=== PATIENT | female | born 1990 | race Caucasian/White ===

== ENCOUNTER 2016-07-10 17:53 | Emergency (ER) | payer BC ==
--- NOTE | ~2016-07-10 | CR63 ---
[facility]. [facility] A Service of [facility] & [facility] RADIOLOGY TEXT RESULTS PATIENT: JOSIE PEÑA LOCATION: SED : 90 UNIT #: [id number] AGE: [address]: Vi Naik APRN SEX: F ORDER DR: [id number] [place] [id number] E MR#: [id number] Acc #: [id number] NAME: JOSIE PEÑA : 1990 SEX: F STUDY DATE/TIME: 07/10/2016 17:57 UNIT: SED ROOM: STUDY DESCRIPTION: CR Chest 2 View Attending Physician: Vi Naik A.P.R.N. Ordering Physician: Vi Naik A.P.R.N. Primary Care Physician: Yony Brooks M.D. MEDICAL IMAGING REPORT This report is preliminary unless electronic signature is present. EXAM PA and lateral chest HISTORY Cough, sore throat and left side pain for 2 weeks. FINDINGS PA and lateral examination of the chest upright shows a good expansion of the parenchyma with a normal distribution of the pulmonary vascularity. There is no indication of congestion, effusion, infiltrate, tumor, or nodular density. The pleural reflections and diaphragmatic contours are normal. The cardiac silhouette and mediastinal anatomy is within normal limits. IMPRESSION Normal chest. Dictated by... Robert Mueller M.D. THIS IS AN ELECTRONICALLY VERIFIED REPORT Robert Mueller M.D. at 07/12/2016 3:28 PM MYRIAM/dhruv TD: 07/11/2016 08:54 JOB #: [id number] MEDICAL IMAGING REPORT
[~2016-07-10 17:53] MED LIST: ALBUTEROL17 GM INH; AUGMENTIN875 MG PO; BACTRIM DS TABL1 TA1 PO; BENTYL20 MG PO; BENZONATATE PO; CLARITIN10 M3; FLONASE 0.05% N16 G1; K-DUR20 ME1 PO; KEFLEX PO; OMEPRAZOLE20 M2 PO; PEPCID PO; PREDNISONE; PRILOSEC; TYLENOL #3 PO; ZITHROMAX PO; ZOFRAN ODT4 MG PO; ZOLOFT50 MG
[2016-07-10 18:38] LABS: BASOPHIL# 0.1 X10e3 (0-0.3); BASOPHIL% 0.8 % (0-2.5); EOSINOPHIL# 0.2 X10e3 (0-0.7); EOSINOPHIL% 1.3 % (0.0-7.0); HEMATOCRIT 40.9 % (35.0-45.0); HEMOGLOBIN 13.5 gm/dL (12.0-16.0); LYMPHOCYTE# 2.8 X10e3 (1.0-3.5); MEAN CELL VOLUME 89.2 FL (83-96); MEAN CORPUSCULAR HEMOGLOBIN 29.4 PG (28-34); MEAN PLATELET VOLUME 7.5 FL (6.5-11.5); MONOCYTE# 0.9 X10e3 (0-1.0); MONOCYTE% 7.1 % (3.0-12.0); NEUTROPHIL# 8.6 X10e3 (1.5-7.1); NEUTROPHIL% 68.8 % (40-75); PLATELET COUNT 273 X10e3 (140-420); RED BLOOD COUNT 4.58 X10e (3.90-5.30); RED CELL DISTRIBUTION WIDTH 13.5 % (11.0-15.5); WHITE BLOOD COUNT 12.5 X10e3 (4.0-10.5)
[2016-07-10 18:46] LABS: DIFF IND NO
[2016-07-10 18:57] LABS: ALBUMIN SERUM 3.9 g/dL (3.5-5.0); ALKALINE PHOSPHATASE 81 U/L (32-92); ALT (SGPT) 24 U/L (10-40); AST (SGOT) 19 U/L (10-42); BILIRUBIN, DIRECT 0.1 mg/dL (0.0-0.2); BILIRUBIN,INDIRECT 0.1 mg/dL (0.0-0.9); BILIRUBIN,TOTAL 0.2 mg/dL (0.2-2.0); BLOOD UREA NITROGEN 14 mg/dL (9-23); CALCIUM SERUM 8.9 mg/dL (8.4-10.2); CARBON DIOXIDE 23 mmol/L (22-31); CHLORIDE 106 mmol/L (100-111); CREATININE SERUM 0.7 mg/dL (0.6-1.4); GLOM FILT RATE Estimated ABOVE60 mL/min (>60); GLUCOSE FASTING 118 mg/dL (70-110); POTASSIUM 3.8 mmol/L (3.5-5.1); SODIUM 137 mmol/L (135-145)
== END 2016-07-10 19:46 | disposition home or self-care (01) ==
LOC: SED 17:53
PROVIDERS: Nurse Practitioner
DX: S29.011A Strain of muscle and tendon of front wall of thorax, initial encounter (principal); J02.9 Acute pharyngitis, unspecified; H66.91 Otitis media, unspecified, right ear; K21.9 Gastro-esophageal reflux disease without esophagitis; X58.XXXA Exposure to other specified factors, initial encounter; Y92.9 Unspecified place or not applicable
CPT/HCPCS: 36415; 71020; 80048; 80076; 85025; 86308; 99283

== ENCOUNTER 2016-07-27 10:26 | Emergency (ER) | payer BC ==
[2016-07-27 10:48] LABS: INFLUENZA A NEG (NEG); INFLUENZA B POS (NEG)
== END 2016-07-27 11:25 | disposition home or self-care (01) ==
LOC: SED 10:26
PROVIDERS: Nurse Practitioner
DX: J10.1 Influenza due to other identified influenza virus with other respiratory manifestations (principal); K21.9 Gastro-esophageal reflux disease without esophagitis; Z87.891 Personal history of nicotine dependence
CPT/HCPCS: 87651; 87804; 99283

== ENCOUNTER 2016-08-09 22:30 | Emergency (ER) | payer BC ==
--- NOTE | ~2016-08-09 | CR72 ---
[facility]. [facility] A Service of [facility] RADIOLOGY TEXT RESULTS PATIENT: JOSIE PEÑA LOCATION: SED : 90 UNIT #: [id number] AGE: [address]: Anmol Quiroz MD SEX: F ORDER DR: [id number] [place] [address] [id number] E MR#: [id number] Acc #: [id number] NAME: JOSIE PEÑA : 1990 SEX: F STUDY DATE/TIME: 08/10/2016 1:09 UNIT: SED ROOM: STUDY DESCRIPTION: CR Chest Single View Portable Attending Physician: Anmol Quiroz M.D. Ordering Physician: Anmol Quiroz M.D. Primary Care Physician: Yony Brooks M.D. MEDICAL IMAGING REPORT This report is preliminary unless electronic signature is present. EXAM Portable chest INDICATION Body aches and cough since July 27, 2016 PROCEDURE Frontal view chest. COMPARISON 07/10/2016 FINDINGS Heart size within normal limits. No dense consolidation. No pleural fluid or pneumothorax. IMPRESSION No active process. Dictated by... Ken Knox M.D. THIS IS AN ELECTRONICALLY VERIFIED REPORT Ken Knox M.D. at 08/10/2016 10:24 PM EED/douglas TD: 08/10/2016 03:46 JOB #: [id number] [facility] A Service of [facility] RADIOLOGY TEXT RESULTS PATIENT: JOSIE PEÑA LOCATION: SED : 90 UNIT #: [id number] AGE: [address]: Anmol Quiroz MD SEX: F ORDER DR: MEDICAL IMAGING REPORT Page 1 of 1
== END 2016-08-10 02:00 | disposition home or self-care (01) ==
LOC: SED 22:30
DX: J20.9 Acute bronchitis, unspecified (principal); J01.00 Acute maxillary sinusitis, unspecified; J01.20 Acute ethmoidal sinusitis, unspecified; K21.9 Gastro-esophageal reflux disease without esophagitis; F17.210 Nicotine dependence, cigarettes, uncomplicated
CPT/HCPCS: 71010; 99283

== ENCOUNTER 2016-09-26 14:52 | Emergency (ER) | payer BC ==
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
[2016-09-26 16:42] LABS: URINE SOURCE CLEAN CATCH
[2016-09-26 16:43] LABS: URINE APPEARANCE CLEAR; URINE BILIRUBIN NEG (NEG); URINE BLOOD TRACE-INTACT (NEG); URINE COLOR YELLOW; URINE GLUCOSE NEG (NORM); URINE KETONE NEG (NEG); URINE LEUKOCYTE ESTERASE 1+ (NEG); URINE NITRATE NEG (NEG); URINE PH 5.5 (5-8); URINE PROTEIN NEG (NEG); URINE SPECIFIC GRAVITY <=1.005 (1.003-1.035); URINE UROBILINOGEN 0.2 MG/DL (NORM)
[2016-09-26 16:48] LABS: MICRO INDICATED? YES
[2016-09-26 16:52] LABS: AMPHETAMINE NEG (NEG); BARBITURATES NEG (NEG); BENZODIAZEPINES NEG (NEG); COCAINE NEG (NEG); MARIJUANA NEG (NEG); OPIATES NEG (NEG); TRICYCLIC ANTIDEPRESSANTS NEG (NEG); U METHADONE NEG (NEG)
[2016-09-26 17:07] LABS: CULTURE INDICATED? NO; URINE BACTERIA NEG (NEG); URINE RBC 0-2 /[HPF] (0-2); URINE WBC 0-2 /[HPF] (0-5)
== END 2016-09-26 19:11 | disposition home or self-care (01) ==
LOC: SED 14:52
PROVIDERS: Physician Assistant
DX: S09.90XA Unspecified injury of head, initial encounter (principal); S10.93XA Contusion of unspecified part of neck, initial encounter; S00.83XA Contusion of other part of head, initial encounter; S30.0XXA Contusion of lower back and pelvis, initial encounter; S20.219A Contusion of unspecified front wall of thorax, initial encounter; K21.9 Gastro-esophageal reflux disease without esophagitis; F17.210 Nicotine dependence, cigarettes, uncomplicated; T74.21XA Adult sexual abuse, confirmed, initial encounter
CPT/HCPCS: 70450; 70486; 71020; 72072; 72125; 73502; 73610; 80307; 81003; 84703; 99284